=== PATIENT | male | born 1995 | race Caucasian/White ===

== ENCOUNTER 2021-10-12 19:47 | Emergency (ER) | payer BC, SELFPAY ==
[2021-10-12 19:58] VITALS: BP 166/81; PULSE 109; RESP 20; TEMP 36.6; O2SAT 97; BMI 27.9
--- NOTE | 2021-10-12 20:19 | XRR_ITS ---
PROCEDURE INFORMATION: Exam: XR Right Knee Exam date and time: 10/12/2021 8:25 PM Age: 26 years old Clinical indication: Injury or trauma; Laceration; Patella or knee; Right; Without foreign body; Patient HX: Lat R knee lac while swimming TECHNIQUE: Imaging protocol: Radiologic exam of the Right knee. Views: 3 views. COMPARISON: No relevant prior studies available. FINDINGS: Bones/joints: Normal. Soft tissues: Normal. XR/XR knee RT 3V* [id number] IMPRESSION: No acute findings.
--- NOTE | 2021-10-12 21:16 | W.ED.WOUNDLC ---
HPI - Wound/Laceration General: Chief Complaint: Wound/Laceration Stated Complaint: Rt knee Injury Time Seen by Provider: 10/12/21 20:02 History of Present Illness: 26 yo male patient presents to ER with laceration to right knee. Pt states he fell on tree branch while at [place]. Pt denies any pain. this happened 30 min [employer]. Pt ambulates without difficulty. Pt states his tetanus is not UTD, Bleeding controlled Associated symptoms: Denies chills, fever(s), nausea, syncope or vomiting Review of Systems Const: Denies: fever(s), chills, body aches, change in appetite, change in weight, fatigue, malaise or diaphoresis Eyes: Denies: change in vision, blurry vision, blind spots, photophobia, eye discomfort, eye discharge, eye redness, floaters or seeing flashes ENMT: Denies: throat pain, uvular edema, enlarged tonsils, odynophagia, hoarseness, mouth pain, swelling of lips/tongue, oral sores, bleeding gums, dental pain, dry mouth, ear or mastoid pain, ear discharge, change in hearing, tinnitus, disequilibrium, nasal discharge, nasal congestion, post nasal drip or sinus pain Card: Denies: chest pain, palpitations, irregular heart rhythm, edema, swelling of feet/ankles, lightheadedness, syncope, pre-syncope, dyspnea on exertion, orthopnea, leg pain with exertion or acrocyanosis Resp: Denies: dyspnea, productive cough, non-productive cough, wheezing, stridor, pain on inspiration, change in phlegm color, hemoptysis or chest congestion GI: Denies: abdominal pain, nausea, vomiting, hematemesis, dysphagia, diarrhea, constipation, GI cramping, change in bowel habits or rectal pain : Denies: flank pain, dysuria, urinary frequency, urinary urgency, urinary hesitancy or hematuria Musc: Denies: neck pain, back pain, extremity pain, extremity swelling, joint pain, joint swelling, joint redness, joint warmth or deformity Skin/Breast: Reports: other (4 cm laceration to lateral aspect of knee); Denies: rash, pruritus, erythema, sores, new lesions, changes in skin color or dry skin Neuro: Denies: headache(s), numbness in extremities, weakness in extremities, sensory changes, lack of coordination, difficulty walking, frequent falls, dizziness, vertigo, confusion, behavioral changes, Slurred speech present, difficulty communicating thoughts or seizure-like activity Psych: Denies: anxiety, depression, suicidal ideation or homicidal ideation Endo: Denies: polyuria, polydipsia, tired all the time, cold intolerance, excessive sweating, flushing, hot flashes or heat intolerance Yariel/Lymph: Denies: easy bruising, easy bleeding, petechiae, purpura, enlarged lymph nodes or tender lymph nodes All/Imm: Denies: urticaria, throat swelling, tongue swelling, facial swelling, acute wheezing or itchy eyes Physical Exam Const: COMMON NORMALS: no acute distress, average body habitus, patient oriented x3, no limitations, healthy appearing, alert and well nourished HENMT: THROAT: no uvular edema Neck/C-Spine: COMMON NORMALS: full ROM, no lymphadenopathy, supple, no meningeal signs, no JVD, Thyroid normal and No carotid bruits THYROID: Thyroid normal Cardio: COMMON NORMALS: no JVD : COMMON NORMALS: Yes no CVA tenderness BLADDER/KIDNEY EXAM: Yes no CVA tenderness Back/Pelvis: COMMON NORMALS: no CVA tenderness, thoracic and lumbar spine normal to inspection, no thoracic nor lumbar tenderness and thoraco-lumbar ROM normal Extremity: GENERAL: Yes normal exam except as noted Neuro: COMMON NORMALS: patient oriented x3 SENSORIUM/ORIENTATION: Yes alert MENINGEAL SIGNS: Yes no meningeal signs Psych: COMMON NORMALS: mental status grossly normal, Normal thought process present, cooperative, normal affect, speech normal, activity/motor behavior normal, denies hallucinations, denies homicidal ideation and denies suicidal ideation SPEECH: Yes normal speech THOUGHT PROCESS: Normal thought process present Skin: NARRATIVE SKIN EXAM: 4 cm linear laceration to lateral aspect of right knee Procedures Laceration Laceration 1: Site: other (right knee) Size (cm): 4 Description: linear Local Anesthetic: lidocaine 2% Amount of anesthesia used (mL): 4 Skin layer closed with: nylon Size (cm): 5-0 Number of sutures: 11 Technique: simple, interrupted Course Vital Signs: Vital signs: Vital Signs Temperature 98 F 10/12/21 19:58 Pulse Rate 109 H 10/12/21 19:58 Respiratory Rate 20 H 10/12/21 19:58 Blood Pressure 166/81 10/12/21 19:58 Pulse Oximetry 97 10/12/21 19:58 MDM - Wound/Laceration Medical Decision Making Patient is well appearing non toxic and in no acute distress. 26 yo male patient presents to ER with laceration to right knee. Pt states he fell on tree branch while at [place]. Pt denies any pain. this happened 30 min [employer]. Pt ambulates without difficulty. Pt states his tetanus is not UTD, Bleeding controlled xray negative for any acute fractures dislocations or retained FB. Pt is NVI distally. Please see procedure noted. Wound was irrigated and cleansed with beatadine. Wound dressed. Keflex given and tetanus updated. Discharge Plan Discharge Patient Disposition: Home Clinical Impression: Laceration Condition: Stable Prescriptions: New cephalexin 500 mg capsule 500 mg PO Q8H 7 Days Qty: 21 0RF Discharge Orders: Discharge ED (Routine); Ordered 10/12/21 Ordered By: Marilynn Daniels Discharge Diet: Advance as tolerated Discharge Activity: Increase activity as tolerated Patient Instructions: Opioid Safety Activity Restrictions/Additional Instructions: Please follow wound care instructions Return to ER in 8-10 days for suture removal or sooner with any worsening of symptoms or signs of infection such as swelling, redness, foul odor or fever Coding Level of Care Code ED [facility] for Susan Morrow
[2021-10-12] MEDS: lidocaine 2% INJ 20 mL INJECTION (21:49)
[2021-10-12] MEDS: cephALEXin 500 mg Capsule PO (21:50)
[2021-10-12] MEDS: tetanus-diphtheria tox (adult) 0.5 mL SDV IM (21:50)
== END 2021-10-12 21:53 | disposition home or self-care (01) ==
PROVIDERS: Emergency Provider Registered Nurse
DX: S81.011A Laceration without foreign body, right knee, initial encounter (principal); W19.XXXA Unspecified fall, initial encounter; Z23 Encounter for immunization
CPT/HCPCS: 12002; 73562; 90471; 90714; 99283